=== PATIENT | male | born 1960 | race Two or more races ===

== ENCOUNTER 2022-11-07 18:23 | Emergency (ER) | payer OTHER ==
[~2022-11-07] VITALS: Ht 170.2 cm; Wt 127.2 kg
[2022-11-07] MEDS: ACCU-CHEK COMFORT CURVE STRIP VI SCH (01:08)
[2022-11-07] MEDS: InsuLIN REG 1unit/0.01ml Soln (100units/ml) SC SCH (01:08)
[~2022-11-07 18:23] MED LIST: LORazepam 2MG/ML-1ML VIAL ONE; MIDAZOLAM HCL 5 MG/ML-1ML VIAL ONE
[2022-11-07] MEDS ORDERED: levETIRAcetam 500 MG/5ML INJ IV ONE (18:25)
[2022-11-07] MEDS ORDERED: MIDAZOLAM HCL 5 MG/ML-1ML VIAL IV ONE (18:30)
[2022-11-07] MEDS ORDERED: LORazepam 2MG/ML-1ML VIAL IV ONE (18:30)
[2022-11-07] MEDS ORDERED: SODIUM CHLORIDE 0.9% 1,000 ML IV ONE (18:30)
[2022-11-07 19:19] LABS: Urine Bacteria NONE SEEN /hpf (None Seen); Urine Blood Negative /uL (Negative); Urine Hyaline Cast MOD /lpf (0 - 2); Urine Mucus FEW (None Seen); Urine Specific Gravity 1.015 (1.001-1.035); Urine WBC 2 /hpf (0 - 3)
[2022-11-07 20:25] LABS: Basophils # (auto) 0 10 ^3/uL (0-0.2); Basophils % (auto) 0.3 % (0.0-2.0); Eosinophils # (auto) 0 10 ^3/uL (0-0.8); Eosinophils % (auto) 0.3 % (0.0-7.0); Hematocrit 41.6 % (41.0-53.0); Hemoglobin 13.6 g/dL (13.5-17.5); Lymphocytes # (auto) 1.5 10 ^3/uL (0.4-5.4); Lymphocytes % (auto) 13.6 % (10.0-50.0); Mean Corpuscular Hemoglobin 30.3 pg (28.0-32.0); Mean Corpuscular Hgb Conc. 32.6 g/dL (32.0-36.0); Mean Corpuscular Volume 92.9 fL (80.0-100.0); Monocytes # (auto) 0.6 10 ^3/uL (0-1.3); Monocytes % (auto) 5.4 % (0.0-12.0); Neutrophils % (auto) 80.4 % (37.0-80.0); Red Blood Cells 4.47 10^6/uL (4.5-5.90); Red Cell Distribution Width 14.2 % (11.8-14.3); White Blood Cell 11.2 10^3/uL (4.4-10.8)
[2022-11-07 20:56] LABS: Lactic Acid w/Reflex 6.3 mmol/L (0.4-2.0)
[2022-11-07 21:02] LABS: Albumin 3.3 g/dL (3.4-5.0); Calcium 8.7 mg/dL (8.5-10.1); Magnesium 2.3 mg/dL (1.6-2.6); Potassium 4.1 mmol/L (3.5-5.1)
[2022-11-07 21:05] LABS: BUN/Creatinine Ratio 14.5 (10.0-20.0)
[2022-11-07 21:07] LABS: Bilirubin, Total 0.3 mg/dL (0.2-1.0)
[2022-11-07] MEDS ORDERED: cefTRIAXone 1GM/50ML D5W 50 ML IV ONE (21:30)
[2022-11-07] MEDS ORDERED: PIPERACILLIN-TAZOB 3.375GM 100 ML IV ONE (21:45)
[2022-11-07] MEDS ORDERED: MORPHINE SULFATE INJ 2 MG/ml SYRG IV PRN (22:00)
[2022-11-07] MEDS ORDERED: ACETAMINOPHEN 325 MG TAB PO PRN (22:00)
[2022-11-07] MEDS ORDERED: NITROGLYCERIN 0.4 MG SL TAB SL PRN (22:00)
[2022-11-07] MEDS ORDERED: LORazepam 2MG/ML-1ML VIAL IV PRN (22:00)
[2022-11-07] MEDS ORDERED: carBAMazepine 200 MG TAB PO SCH (22:00)
[2022-11-07] MEDS ORDERED: ONDANSETRON HCL 4 MG/2 ML VIAL IV PRN (22:00)
[2022-11-07] MEDS ORDERED: levETIRAcetam 500 MG TAB PO SCH (22:00)
[2022-11-07] MEDS ORDERED: DEXTROSE (50%) 50ML SYRG IV PRN (22:00)
[2022-11-08] MEDS ORDERED: LEVE100020 PO (00:47)
[2022-11-08] MEDS ORDERED: INSU1INJ4 SC (00:47)
[2022-11-08] MEDS ORDERED: NABU-72 PO (00:47)
[2022-11-08] MEDS ORDERED: ATOR40TA52 PO (00:47)
[2022-11-08] MEDS ORDERED: METF-372 PO (00:47)
[2022-11-08] MEDS ORDERED: METF-762 PO (00:47)
[2022-11-08] MEDS ORDERED: CARB200T4 PO (00:47)
[2022-11-08] MEDS ORDERED: LISI10TA34 PO (00:47)
[2022-11-08] MEDS ORDERED: GLIP10TA9 PO (00:47)
[2022-11-08] MEDS ORDERED: AZITHROMYCIN 500MG/ 250ML 250 ML IV SCH (01:00)
[2022-11-08] MEDS ORDERED: cefTRIAXone 1GM/50ML D5W 50 ML IV SCH (01:00)
[2022-11-08 06:21] LABS: Calcium 8.7 mg/dL (8.5-10.1); Potassium 4.3 mmol/L (3.5-5.1)
[2022-11-08 06:23] LABS: Lactic Acid w/Reflex 2.1 mmol/L (0.4-2.0)
[2022-11-08 06:34] LABS: Basophils # (auto) 0 10 ^3/uL (0-0.2); Basophils % (auto) 0.4 % (0.0-2.0); Eosinophils # (auto) 0 10 ^3/uL (0-0.8); Eosinophils % (auto) 0.4 % (0.0-7.0); Hematocrit 38.7 % (41.0-53.0); Hemoglobin 13.1 g/dL (13.5-17.5); Lymphocytes % (auto) 33.1 % (10.0-50.0); Mean Corpuscular Hemoglobin 30.5 pg (28.0-32.0); Mean Corpuscular Hgb Conc. 33.8 g/dL (32.0-36.0); Mean Corpuscular Volume 90.3 fL (80.0-100.0); Monocytes # (auto) 0.6 10 ^3/uL (0-1.3); Monocytes % (auto) 6.3 % (0.0-12.0); Neutrophils # (auto) 5.4 10 ^3/uL (1.6-8.6); Neutrophils % (auto) 59.8 % (37.0-80.0); Nucleated Red Blood Cells % 0.1 %; Red Blood Cells 4.28 10^6/uL (4.5-5.90); Red Cell Distribution Width 14.1 % (11.8-14.3); White Blood Cell 9.1 10^3/uL (4.4-10.8)
[2022-11-08] MEDS: ACCU-CHEK COMFORT CURVE STRIP VI SCH (07:02)
[2022-11-08] MEDS: InsuLIN REG 1unit/0.01ml Soln (100units/ml) SC SCH (07:05)
[2022-11-08 07:27] VITALS: BP 119/51
[2022-11-08] MEDS ORDERED: LISINOPRIL 10 MG TAB PO SCH (10:00)
[2022-11-08] MEDS ORDERED: PANTOPRAZOLE 40 MG TAB PO SCH (10:00)
[2022-11-08] MEDS ORDERED: ASPirin 81 mg TAB PO SCH (10:00)
[2022-11-08] MEDS ORDERED: ENOXAPARIN SOD 40 MG/0.4 ML SYRINGE SC SCH (10:00)
[2022-11-08] MEDS ORDERED: ATORVASTATIN 20 MG TAB PO SCH (22:00)
== END 2022-11-08 07:54 | disposition short-term general hospital (02) ==
LOC: EDBD 18:23 → ER 18:26 → TELE 22:07 → UNDOADMIN 22:07 → ER 11-08 07:54
DX: G40.89 Other seizures (principal); R09.89 Other specified symptoms and signs involving the circulatory and respiratory systems; R91.8 Other nonspecific abnormal finding of lung field; R93.89 Abnormal findings on diagnostic imaging of other specified body structures; I10 Essential (primary) hypertension; E11.9 Type 2 diabetes mellitus without complications; Z20.822 Contact with and (suspected) exposure to COVID-19; Z86.73 Personal history of transient ischemic attack (TIA), and cerebral infarction without residual deficits
CPT/HCPCS: 36415; 70450; 71045; 80048; 80053; 81001; 82962; 83605; 83735; 83880; 84484; 85025; 87426; 93005; 96365; 96366; 96367; 96372; 96375; 99291; J0456; J0696; J1815; J1953; J2060; J2250; J2543; J7060; G0378